=== PATIENT | female | born 1995 ===

== ENCOUNTER 2019-11-16 07:14 | Inpatient (IN) | payer BC ==
[2019-11-16] MEDS ORDERED: Methylergonovine 0.2 MG/1 ML Amp IM PRN (07:22)
[2019-11-16] MEDS ORDERED: Terbutaline 1 MG/ML SDV SUBCUT PRN (07:22)
[2019-11-16] MEDS ORDERED: Ondansetron 4 MG/2 ML SDV IVPUSH PRN (07:22)
[2019-11-16] MEDS ORDERED: Misoprostol 200 MCG Tab PO PRN (07:22)
[2019-11-16] MEDS ORDERED: Sodium Chloride 0.9% 2.5 ML Syringe FLUSH PRN (07:22)
[2019-11-16] MEDS ORDERED: Water For Irrigation,Sterile 1,000 ML Container IRR PRN (07:22)
[2019-11-16] MEDS ORDERED: Sodium Chloride 0.9% 10 ML Syringe FLUSH PRN (07:22)
[2019-11-16] MEDS ORDERED: Lidocaine 1% 50 ML MDV INJECT PRN (07:22)
[2019-11-16] MEDS ORDERED: Sodium Chloride 0.9% 10 ML SDV IV PRN (07:22)
[2019-11-16] MEDS ORDERED: Nalbuphine 10 MG/1 ML Vial IVPUSH PRN (07:22)
[2019-11-16] MEDS ORDERED: Tranexamic Acid 1,000 MG in Sodium Chloride 0.9% 100 ML IV PRN (07:22)
[2019-11-16] MEDS ORDERED: Carboprost Tromethamine 250 MCG/1 ML Amp IM PRN (07:22)
[2019-11-16] MEDS ORDERED: Oxytocin/0.9 % Sodium Chloride 30 UNIT/500 ML BAG IV SCH ×2 (07:30)
[2019-11-16] MEDS ORDERED: Lactated Ringers 1,000 ML IV SCH (07:30)
[2019-11-16] MEDS ORDERED: Misoprostol 25 MCG (1/4 of 100 MCG) Tab VAG PRN ×2 (08:00→12:00)
[2019-11-16] MEDS ORDERED: Misoprostol 25 MCG (1/4 of 100 MCG) Tab PO PRN ×2 (08:00→12:00)
--- NOTE | 2019-11-16 08:12 | PCM.LDHP ---
L&D History of Present Illness - General Date of Service: 11/16/19 Admit Problem/Dx: Patient Status Order with Admit Dx/Problem 11/16/19 07:22 Patient Status [ADT] Routine Admission Diagnosis/Problem Admission Diagnosis/Problem 11/16/19 08:08 24yo EDC 11/23/2019 39 0/7wks IOL for term. O+, RI, GBS neg Source of Information: Patient History Limitations: Reports: No Limitations - History of Present Illness Improves with: Reports: None Worsens with: Reports: None Associated Symptoms: Reports: N - Related Data Allergies/Adverse Reactions: Allergies Allergy/AdvReac Type Severity Reaction Status Date / Time sulfamethoxazole Allergy Hives Verified 11/16/19 07:30 [From Bactrim] trimethoprim [From Bactrim] Allergy Hives Verified 11/16/19 07:30 Home Medications: Home Meds Vits #93/Iron Fum/FA [ Formula Tablet] 1 each PO DAILY [History] H&P Review of Systems - Review of Systems: Review Of Systems: See Below General: Reports: No Symptoms HEENT: Reports: No Symptoms Pulmonary: Reports: No Symptoms Cardiovascular: Reports: No Symptoms Gastrointestinal: Reports: No Symptoms Genitourinary: Reports: No Symptoms Musculoskeletal: Reports: No Symptoms Skin: Reports: No Symptoms Psychiatric: Reports: No Symptoms Neurological: Reports: No Symptoms Hematologic/Lymphatic: Reports: No Symptoms Immunologic: Reports: No Symptoms L&D Exam - Exam Exam: See Below - Vital Signs Weight: 77.111 kg - OB Specific Contraction Intensity: Mild Movement: Active Heart Tones: Present Heart Tones per Min: 145 Heart Rate (FHR) Variability: Moderate (6-25 bmp) Presentation: Vertex - Berry Score Berry Score Cervix Position: Posterior Berry Score Consistency: Soft Berry Score Effacement: 51-70% Berry Score Dilation: 1-2 cm Berry Score 's Station: -3 Berry Score Total: 5 - Exam General: Alert, Oriented, Cooperative HEENT: Hearing Intact Lungs: Clear to Auscultation, Normal Respiratory Effort Cardiovascular: Regular Rate, Regular Rhythm GI/Abdominal Exam: Soft, Non-Tender Rectal Exam: Deferred Genitourinary: Normal external exam, Normal bimanual exam, Cervical dilitation. No: Cervical fluid, Vaginal bleeding Back Exam: Normal Inspection, Full Range of Motion Extremities: Normal Range of Motion, Non-Tender Skin: Warm, Dry, Intact Neurological: Cranial Nerves Intact, Strength Equal Bilateral, Normal Speech, Normal Tone, Sensation Intact Psychiatric: Alert, Normal Affect, Normal Mood - Problem List (1) Supervision of normal IUP (intrauterine ) in multigravida SNOMED Code(s): 076831588, 621442843, 284156858 ICD Code: Z34.80 - ENCOUNTER FOR SUPRVSN OF NORMAL , UNSP TRIMESTER Status: Acute Priority: High Current Visit: Yes Qualifiers: Trimester: third trimester Qualified Code(s): Z34.83 - Encounter for supervision of other normal , third trimester Problem List Initiated/Reviewed/Updated: Yes Orders Last 24hrs: Active Orders 24 hr Category Date Time Status Patient Status [ADT] Routine ADT 11/16/19 07:22 Active Bedrest Bathroom Privileges [RC] ASDIRECTED Care 11/16/19 07:22 Active Communication Order [RC] ASDIRECTED Care 11/16/19 07:22 Active Communication Order [RC] ASDIRECTED Care 11/16/19 07:22 Active Communication Order [RC] ASDIRECTED Care 11/16/19 07:22 Active Heart Tones [RC] CONTINUOUS Care 11/16/19 07:22 Active Non Stress Test [RC] PER UNIT ROUTINE Care 11/16/19 07:22 Active May Shower [RC] ASDIRECTED Care 11/16/19 07:22 Active Notify Provider [RC] PRN Care 11/16/19 07:22 Active Notify Provider [RC] PRN Care 11/16/19 07:22 Active Notify Provider [RC] PRN Care 11/16/19 07:22 Active Notify Provider [RC] STAT Care 11/16/19 07:22 Active Oxygen Therapy [RC] ASDIRECTED Care 11/16/19 07:22 Active Up ad Wilda [RC] ASDIRECTED Care 11/16/19 07:22 Active Vaginal Exam [RC] PRN Care 11/16/19 07:22 Active Vital Signs [RC] PER UNIT ROUTINE Care 11/16/19 07:22 Active Regular Diet [DIET] Diet 11/16/19 Breakfast Active CBC W/O DIFF,HEMOGRAM [HEME] Routine Lab 11/16/19 07:50 Received RPR (SYPHILIS SERO) W/ RFLX [REF] Routine Lab 11/16/19 07:50 Received TYPE AND SCREEN [BBK] Routine Lab 11/16/19 07:50 Received Carboprost Tromethamine [Hemabate DS] Med 11/16/19 07:22 Active 250 mcg IM ASDIRECTED PRN Lactated Ringers [Ringers, Lactated] 1,000 ml Med 11/16/19 07:30 Active IV ASDIRECTED Lidocaine 1% [Xylocaine 1%] Med 11/16/19 07:22 Active 50 ml INJECT ONETIME PRN Methylergonovine [Methergine] Med 11/16/19 07:22 Active 0.2 mg IM ASDIRECTED PRN Nalbuphine [Nubain] Med 11/16/19 07:22 Active 10 mg IVPUSH Q1H PRN Ondansetron [Zofran] Med 11/16/19 07:22 Active 4 mg IVPUSH Q6H PRN Oxytocin/0.9 % Sodium Chloride [Oxytocin 30 Unit/500 ML Med 11/16/19 07:30 Active -NS] 30 unit in 500 ml IV TITRATE Oxytocin/0.9 % Sodium Chloride [Oxytocin 30 Unit/500 ML Med 11/16/19 07:30 Active -NS] 30 unit in 500 ml IV TITRATE Sodium Chloride 0.9% [Normal Saline] Med 11/16/19 07:22 Active 10 ml IV ASDIRECTED PRN Sodium Chloride 0.9% [Saline Flush] Med 11/16/19 07:22 Active 10 ml FLUSH ASDIRECTED PRN Sodium Chloride 0.9% [Saline Flush] Med 11/16/19 07:22 Active 2.5 ml FLUSH ASDIRECTED PRN Terbutaline [Brethine] Med 11/16/19 07:22 Active 0.25 mg SUBCUT ASDIRECTED PRN Tranexamic Acid [Cyklokapron] 1,000 mg Med 11/16/19 07:22 Active Sodium Chloride 0.9% [Normal Saline] 100 ml IV ONETIME Water For Irrigation,Sterile [Sterile Water for Med 11/16/19 07:22 Active Irrigation] 1,000 ml IRR ASDIRECTED PRN miSOPROStoL [Cytotec] Med 11/16/19 07:22 Active 200 mcg PO ONETIME PRN miSOPROStoL [Cytotec] Med 11/16/19 08:00 Active 25 mcg PO ONETIME PRN miSOPROStoL [Cytotec] Med 11/16/19 12:00 Active 25 mcg PO Q4H PRN miSOPROStoL [Cytotec] Med 11/16/19 08:00 Active 25 mcg VAG ONETIME PRN miSOPROStoL [Cytotec] Med 11/16/19 12:00 Active 25 mcg VAG Q4H PRN Scalp Electrode [WOMSER] Per Unit Routine Oth 11/16/19 07:22 Ordered Medication Administration Instruction [OM.PC] Q3H Oth 11/16/19 07:30 Ordered Peripheral IV Insertion Adult [OM.PC] Routine Oth 11/16/19 07:22 Ordered Resuscitation Status Routine Resus Stat 11/16/19 07:22 Ordered Medication Orders Carboprost Tromethamine (Hemabate Ds) 250 mcg IM ASDIRECTED PRN PRN Reason: Post Hemorrhage Lactated Ringer's (Ringers, Lactated) 1,000 mls @ 150 mls/hr IV ASDIRECTED DAGO Oxytocin/Sodium Chloride (Oxytocin 30 Unit/500 Ml-Ns) 30 unit in 500 mls @ 999 mls/hr IV TITRATE DAGO Oxytocin/Sodium Chloride (Oxytocin 30 Unit/500 Ml-Ns) 30 unit in 500 mls @ 2 mls/hr IV TITRATE DAGO; Protocol Tranexamic Acid 1,000 mg/ (Sodium Chloride) 110 mls @ 660 mls/hr IV ONETIME PRN PRN Reason: Bleeding Lidocaine HCl (Xylocaine 1%) 50 ml INJECT ONETIME PRN PRN Reason: Laceration repair Methylergonovine Maleate (Methergine) 0.2 mg IM ASDIRECTED PRN PRN Reason: Post Hemorrhage Misoprostol (Cytotec) 200 mcg PO ONETIME PRN PRN Reason: Post Hemorrhage Misoprostol (Cytotec) 25 mcg VAG ONETIME PRN PRN Reason: Cervical Ripening Misoprostol (Cytotec) 25 mcg VAG Q4H PRN PRN Reason: Cervical Ripening Misoprostol (Cytotec) 25 mcg PO ONETIME PRN PRN Reason: Cervical Ripening Misoprostol (Cytotec) 25 mcg PO Q4H PRN PRN Reason: Cervical Ripening Nalbuphine HCl (Nubain) 10 mg IVPUSH Q1H PRN PRN Reason: Pain (severe 7-10) Ondansetron HCl (Zofran) 4 mg IVPUSH Q6H PRN PRN Reason: Nausea/Vomiting Sodium Chloride (Saline Flush) 10 ml FLUSH ASDIRECTED PRN PRN Reason: Keep Vein Open Sodium Chloride (Saline Flush) 2.5 ml FLUSH ASDIRECTED PRN PRN Reason: Keep Vein Open Sodium Chloride (Normal Saline) 10 ml IV ASDIRECTED PRN PRN Reason: IV Use Sterile Water (Sterile Water For Irrigation) 1,000 ml IRR ASDIRECTED PRN PRN Reason: delivery Terbutaline Sulfate (Brethine) 0.25 mg SUBCUT ASDIRECTED PRN PRN Reason: Tacysystole Assessment/Plan Comment:: IOL A: 24yo EDC 11/23/2019 39 0/7wks IOL for term. O+, RI, GBS neg P: Admit, cytotec to pitocin, epidural prn, anticipate . Dr Zaidi updated
--- NOTE | 2019-11-16 15:44 | PCM.PREANE ---
Preanesthetic Assessment - Anesthesia/Transfusion/Family Hx Anesthesia History: Prior Anesthesia Without Reaction Family History of Anesthesia Reaction: No Transfusion History: No Prior Transfusion(s) - Review of Systems General: No Symptoms Pulmonary: No Symptoms Cardiovascular: No Symptoms Gastrointestinal: No Symptoms Neurological: No Symptoms Other: Reports: None - Physical Assessment NPO Status Date: 11/16/19 NPO Status Time: 15:00 (water at 1500, chicken strips at 1000) Vital Signs: Last Vital Signs Temp Pulse Resp BP Pulse Ox 98 11/16/19 07:22 Height: 5 ft 5 in Weight: 77.111 kg ASA Class: 2 Mental Status: Alert & Oriented x3 Airway Class: Mallampati = 2 Dentition: Reports: Normal Dentition Thyro-Mental Finger Breadths: 3 ROM/Head Extension: Full Lungs: Clear to Auscultation, Normal Respiratory Effort Cardiovascular: Regular Rate, Regular Rhythm Other: for elective induction at 39 weeks. Had 2 previous epidurals - Lab Values: Laboratory Last Values WBC 7.86 K/uL (4.0-11.0) 11/16/19 07:50 RBC 4.10 M/uL (4.30-5.90) L 11/16/19 07:50 Hgb 12.9 g/dL (12.0-16.0) 11/16/19 07:50 Hct 39.0 % (36.0-46.0) 11/16/19 07:50 MCV 95.1 fL (80.0-98.0) 11/16/19 07:50 MCH 31.5 pg (27.0-32.0) 11/16/19 07:50 MCHC 33.1 g/dL (31.0-37.0) 11/16/19 07:50 RDW Std Deviation 46.4 fl (28.0-62.0) 11/16/19 07:50 RDW Coeff of Camila 13 % (11.0-15.0) 11/16/19 07:50 Plt Count 225 K/uL (150-400) 11/16/19 07:50 MPV 10.20 fL (7.40-12.00) 11/16/19 07:50 Nucleated RBC % 0.0 /100WBC 11/16/19 07:50 Nucleated RBCs # 0 K/uL 11/16/19 07:50 Blood Type O POSITIVE 11/16/19 07:50 Antibody Screen NEGATIVE 11/16/19 07:50 - Allergies Allergies/Adverse Reactions: Allergies Allergy/AdvReac Type Severity Reaction Status Date / Time sulfamethoxazole Allergy Hives Verified 11/16/19 07:30 [From Bactrim] trimethoprim [From Bactrim] Allergy Hives Verified 11/16/19 07:30 - Acknowledgements Anesthesia Type Planned: Epidural Pt an Appropriate Candidate for the Planned Anesthesia: Yes Alternatives and Risks of Anesthesia Discussed w Pt/Guardian: Yes Pt/Guardian Understands and Agrees with Anesthesia Plan: Yes PreAnesthesia Questionnaire - HOME MEDS Home Medications: Home Meds Vits #93/Iron Fum/FA [ Formula Tablet] 1 each PO DAILY [History] - CURRENT (IN HOUSE) MEDS Current Meds: Current Medications Carboprost Tromethamine (Hemabate Ds) 250 mcg IM ASDIRECTED PRN PRN Reason: Post Hemorrhage Lactated Ringer's (Ringers, Lactated) 1,000 mls @ 150 mls/hr IV ASDIRECTED DAGO Oxytocin/Sodium Chloride (Oxytocin 30 Unit/500 Ml-Ns) 30 unit in 500 mls @ 999 mls/hr IV TITRATE DAGO Oxytocin/Sodium Chloride (Oxytocin 30 Unit/500 Ml-Ns) 30 unit in 500 mls @ 2 mls/hr IV TITRATE DAGO; Protocol Tranexamic Acid 1,000 mg/ (Sodium Chloride) 110 mls @ 660 mls/hr IV ONETIME PRN PRN Reason: Bleeding Lidocaine HCl (Xylocaine 1%) 50 ml INJECT ONETIME PRN PRN Reason: Laceration repair Methylergonovine Maleate (Methergine) 0.2 mg IM ASDIRECTED PRN PRN Reason: Post Hemorrhage Misoprostol (Cytotec) 200 mcg PO ONETIME PRN PRN Reason: Post Hemorrhage Misoprostol (Cytotec) 25 mcg VAG ONETIME PRN PRN Reason: Cervical Ripening Last Admin: 11/16/19 08:10 Dose: 25 mcg Misoprostol (Cytotec) 25 mcg VAG Q4H PRN PRN Reason: Cervical Ripening Misoprostol (Cytotec) 25 mcg PO ONETIME PRN PRN Reason: Cervical Ripening Last Admin: 11/16/19 08:10 Dose: 25 mcg Misoprostol (Cytotec) 25 mcg PO Q4H PRN PRN Reason: Cervical Ripening Nalbuphine HCl (Nubain) 10 mg IVPUSH Q1H PRN PRN Reason: Pain (severe 7-10) Ondansetron HCl (Zofran) 4 mg IVPUSH Q6H PRN PRN Reason: Nausea/Vomiting Sodium Chloride (Saline Flush) 10 ml FLUSH ASDIRECTED PRN PRN Reason: Keep Vein Open Sodium Chloride (Saline Flush) 2.5 ml FLUSH ASDIRECTED PRN PRN Reason: Keep Vein Open Sodium Chloride (Normal Saline) 10 ml IV ASDIRECTED PRN PRN Reason: IV Use Last Admin: 11/16/19 07:48 Dose: 10 ml Sterile Water (Sterile Water For Irrigation) 1,000 ml IRR ASDIRECTED PRN PRN Reason: delivery Terbutaline Sulfate (Brethine) 0.25 mg SUBCUT ASDIRECTED PRN PRN Reason: Tacysystole Discontinued Medications Fentanyl/Bupivacaine HCl ([id number]-[id number]-Vf 2 Mcg/Ml-0.125%) Confirm Administered Dose 100 mls @ as directed .ROUTE .[facility] Stop: 11/16/19 15:10
--- NOTE | 2019-11-16 18:00 | PCM.DEL ---
L & D Note - General Info Date of Service: 11/16/19 Mother's Due Date: 11/23/19 - Delivery Note Labor: Spontaneous Cervical Ripening Method: Misoprostil Delivery Outcome: Livebirth Delivery Method: Spontaneous Vaginal Delivery-Single Infant Delivery Mode: Spontaneous Presentation: Vertex Nuchal Cord: None Anesthesia Type: Epidural Amniotic Fluid Description: Clear Episiotomy Type: None Laceration: None Placenta: Intact, Spontaneous Cord: 3 Vessels Resuscitation Needed: Yes Score 1 min: 8 Score 5 min: 9 Second Stage Interventions: Reports: Pushing, Pulls Own Legs Back Delivery Comments (Free Text/Narrative):: of viable female, Head delivered with good pushing, Shoulders and body followed easily. with spont cry placed on mothers abdomen with RN at bs. Delayed cord clamping. Pitocin to IFV. Cord clamped and cut by FOB. Cord blood collected. Placenta delivered with manual assistance. Bimanual normal. Inspection noted intact perineum. EBL 100, APGARS 8/9, Wt: pending bonding. Mother and baby bonding well in recovery both stable. Induction Criteria - Berry Score Berry Score Dilation: 1-2 cm Berry Score Effacement: 40-50% Berry Score Infant's Station: -3 Berry Score Consistency: Soft Berry Score Cervix Position: Posterior Berry Score Total: 4 Berry Score Presenting Part: Reports: Cephalic - Induction Gestational Age >/= 39 wks: Yes Estimated Pelvis: Reports: Adequate Reassuring Monitoring Strip: Yes Absence of Tachy Systole: Yes - General Info Date of Service: 11/16/19 Admission Dx/Problem (Free Text): Patient Status Order with Admit Dx/Problem 11/16/19 07:22 Patient Status [ADT] Routine Admission Diagnosis/Problem Admission Diagnosis/Problem 11/16/19 08:08 24yo EDC 11/23/2019 39 0/7wks IOL for term. O+, RI, GBS neg Functional Status: Reports: Pain Controlled - Review of Systems General: Reports: No Symptoms HEENT: Reports: No Symptoms Pulmonary: Reports: No Symptoms Cardiovascular: Reports: No Symptoms Gastrointestinal: Reports: No Symptoms Genitourinary: Reports: No Symptoms Musculoskeletal: Reports: No Symptoms Skin: Reports: No Symptoms Neurological: Reports: No Symptoms Psychiatric: Reports: No Symptoms - Patient Data Vitals - Most Recent: Last Vital Signs Temp Pulse Resp BP Pulse Ox 98 11/16/19 07:22 Weight - Most Recent: 77.111 kg Lab Results Last 24 Hours: Laboratory Results - last 24 hr 11/16/19 11/16/19 Range/Units 07:50 07:50 WBC 7.86 (4.0-11.0) K/uL RBC 4.10 L (4.30-5.90) M/uL Hgb 12.9 (12.0-16.0) g/dL Hct 39.0 (36.0-46.0) % MCV 95.1 (80.0-98.0) fL MCH 31.5 (27.0-32.0) pg MCHC 33.1 (31.0-37.0) g/dL RDW Std Deviation 46.4 (28.0-62.0) fl RDW Coeff of Camila 13 (11.0-15.0) % Plt Count 225 (150-400) K/uL MPV 10.20 (7.40-12.00) fL Nucleated RBC % 0.0 /100WBC Nucleated RBCs # 0 K/uL Blood Type O POSITIVE Antibody Screen NEGATIVE Med Orders - Current: Current Medications Carboprost Tromethamine (Hemabate Ds) 250 mcg IM ASDIRECTED PRN PRN Reason: Post Hemorrhage Lactated Ringer's (Ringers, Lactated) 1,000 mls @ 150 mls/hr IV ASDIRECTED DAGO Oxytocin/Sodium Chloride (Oxytocin 30 Unit/500 Ml-Ns) 30 unit in 500 mls @ 999 mls/hr IV TITRATE DAGO Oxytocin/Sodium Chloride (Oxytocin 30 Unit/500 Ml-Ns) 30 unit in 500 mls @ 2 mls/hr IV TITRATE DAGO; Protocol Tranexamic Acid 1,000 mg/ (Sodium Chloride) 110 mls @ 660 mls/hr IV ONETIME PRN PRN Reason: Bleeding Lidocaine HCl (Xylocaine 1%) 50 ml INJECT ONETIME PRN PRN Reason: Laceration repair Methylergonovine Maleate (Methergine) 0.2 mg IM ASDIRECTED PRN PRN Reason: Post Hemorrhage Misoprostol (Cytotec) 200 mcg PO ONETIME PRN PRN Reason: Post Hemorrhage Misoprostol (Cytotec) 25 mcg VAG ONETIME PRN PRN Reason: Cervical Ripening Last Admin: 11/16/19 08:10 Dose: 25 mcg Misoprostol (Cytotec) 25 mcg VAG Q4H PRN PRN Reason: Cervical Ripening Misoprostol (Cytotec) 25 mcg PO ONETIME PRN PRN Reason: Cervical Ripening Last Admin: 11/16/19 08:10 Dose: 25 mcg Misoprostol (Cytotec) 25 mcg PO Q4H PRN PRN Reason: Cervical Ripening Nalbuphine HCl (Nubain) 10 mg IVPUSH Q1H PRN PRN Reason: Pain (severe 7-10) Ondansetron HCl (Zofran) 4 mg IVPUSH Q6H PRN PRN Reason: Nausea/Vomiting Sodium Chloride (Saline Flush) 10 ml FLUSH ASDIRECTED PRN PRN Reason: Keep Vein Open Sodium Chloride (Saline Flush) 2.5 ml FLUSH ASDIRECTED PRN PRN Reason: Keep Vein Open Sodium Chloride (Normal Saline) 10 ml IV ASDIRECTED PRN PRN Reason: IV Use Last Admin: 11/16/19 07:48 Dose: 10 ml Sterile Water (Sterile Water For Irrigation) 1,000 ml IRR ASDIRECTED PRN PRN Reason: delivery Terbutaline Sulfate (Brethine) 0.25 mg SUBCUT ASDIRECTED PRN PRN Reason: Tacysystole Discontinued Medications Fentanyl/Bupivacaine HCl (Acnmwmmb-Cwfax-[id number] 2 Mcg/Ml-0.125%) Confirm Administered Dose 100 mls @ as directed .ROUTE .[facility] ONE Stop: 11/16/19 15:10 - Exam General: Alert, Oriented, Cooperative, No Acute Distress Lungs: Normal Respiratory Effort GI/Abdominal Exam: Soft, Non-Tender (Female) Exam: Normal External Exam, Normal Bimanual Exam, Vaginal Bleeding. No: Vaginal Lesions, Vaginal Tears Back Exam: Normal Inspection Extremities: Normal Inspection, No Pedal Edema, Normal Capillary Refill Skin: Warm, Dry, Intact Wound/Incisions: Healing Well Neurological: No New Focal Deficit, Normal Speech, Normal Tone Psy/Mental Status: Alert, Normal Affect, Normal Mood - Problem List & Annotations (1) Supervision of normal IUP (intrauterine ) in multigravida SNOMED Code(s): 195045367, 315575041, 111889300 Code(s): Z34.80 - ENCOUNTER FOR SUPRVSN OF NORMAL , UNSP TRIMESTER Status: Acute Priority: High Current Visit: Yes Qualifiers: Trimester: third trimester Qualified Code(s): Z34.83 - Encounter for supervision of other normal , third trimester (2) (normal spontaneous vaginal delivery) SNOMED Code(s): 58739819, 203556983 Code(s): O80 - ENCOUNTER FOR FULL-TERM UNCOMPLICATED DELIVERY Status: Acute Priority: High Current Visit: Yes - Problem List Review Problem List Initiated/Reviewed/Updated: Yes - Plan Plan:: IOL A: 24yo EDC 11/23/2019 39 0/7wks IOL for term. O+, RI, GBS neg P: Admit, cytotec to pitocin, epidural prn, anticipate . Dr Zaidi updated Delivery A: of viable female, APGARS 8/9, Wt: pending, Intact EBL 100cc. Stable P: PP plan of care
[2019-11-16] MEDS ORDERED: Ibuprofen 400 MG Tab PO PRN (18:14)
[2019-11-16] MEDS ORDERED: Bisacodyl 10 MG Supp RECTAL PRN (18:14)
[2019-11-16] MEDS ORDERED: Acetaminophen 500 MG Tab PO PRN ×2 (18:14)
[2019-11-16] MEDS ORDERED: Lanolin 100% Cream 7 GM Tube TOP PRN (18:14)
[2019-11-16] MEDS ORDERED: oxyCODONE 5 MG Tab PO PRN (18:14)
[2019-11-16] MEDS ORDERED: Docusate Sodium 100 MG Cap PO PRN (18:14)
[2019-11-16] MEDS ORDERED: Witch Hazel Medicated Pads 40/Jar TOP PRN (18:14)
[2019-11-16] MEDS ORDERED: Benzocaine/Menthol 20%-0.5% Spray 78 GM Cannister TOP PRN (18:14)
[2019-11-16] MEDS: Ibuprofen 800 MG Tab PO PRN (22:24)
--- NOTE | 2019-11-17 07:00 | PCM48HPAN ---
Post Anesthesia Note - EVALUATION WITHIN 48HRS OF ANESTHETIC Vital Signs in Normal Range: Yes Patient Participated in Evaluation: Yes Respiratory Function Stable: Yes Airway Patent: Yes Cardiovascular Function Stable: Yes Hydration Status Stable: Yes Pain Control Satisfactory: Yes Nausea and Vomiting Control Satisfactory: Yes Mental Status Recovered: Yes Vital Signs: Last Vital Signs Temp 36.3 C 11/17/19 04:47 Pulse 74 11/17/19 04:47 Resp 18 11/17/19 04:47 BP 105/58 L 11/17/19 04:47 Pulse Ox 98 11/17/19 04:47
[2019-11-17] MEDS: Ibuprofen 800 MG Tab PO PRN (07:49)
--- NOTE | 2019-11-17 08:55 | PCM.DCSUM1 ---
Discharge Summary - Hospital Course Free Text/Narrative:: Discharge home with . Follow up in 6 weeks for Diagnosis: Stroke: No Modified [place] Scale: No Symptoms at All Modified Mitch Scale Score: 0 - Discharge Data Discharge Date: 11/17/19 Discharge Disposition: Home, Self-Care 01 Condition: Good - Referral to Home Health Primary Care Physician: PCP None - Discharge Diagnosis/Problem(s) (1) Supervision of normal IUP (intrauterine ) in multigravida SNOMED Code(s): 390622436, [id number], 568998392 ICD Code: Z34.80 - ENCOUNTER FOR SUPRVSN OF NORMAL , UNSP TRIMESTER Status: Acute Priority: High Current Visit: Yes Qualifiers: Trimester: third trimester Qualified Code(s): Z34.83 - Encounter for supervision of other normal , third trimester (2) (normal spontaneous vaginal delivery) SNOMED Code(s): 11124123, 287762779 ICD Code: O80 - ENCOUNTER FOR FULL-TERM UNCOMPLICATED DELIVERY Status: Acute Priority: High Current Visit: Yes - Patient Instructions Diet: Usual Diet as Tolerated Activity: As Tolerated, No Strenuous Activities, Rest and Relax Today Driving: May Drive Today Showering/Bathing: May Shower Notify Provider of: Fever, Increased Pain, Swelling and Redness, Nausea and/or Vomiting Other/Special Instructions: Discharge home with infant. Follow up in 6 weeks for - Discharge Plan *PRESCRIPTION DRUG MONITORING PROGRAM REVIEWED*: Not Applicable *COPY OF PRESCRIPTION DRUG MONITORING REPORT IN PATIENT GILBERT: Not Applicable Home Medications: Home Meds Vits #93/Iron Fum/FA [ Formula Tablet] 1 each PO DAILY [History] Oxygen Therapy Mode: Room Air Referrals: [facility] [Outside] Meliza Mckeon, NEVINM, MENTAL HEALTH SOC[employer] WORKER [Mid-] - 12/28/19 2:00 pm - Discharge Summary/Plan Comment DC Time >30 min.: Yes - General Info Date of Service: 11/17/19 Admission Dx/Problem (Free Text: Patient Status Order with Admit Dx/Problem 11/16/19 07:22 Patient Status [ADT] Routine Admission Diagnosis/Problem Admission Diagnosis/Problem 11/16/19 08:08 24yo EDC 11/23/2019 39 0/7wks IOL for term. O+, RI, GBS neg Functional Status: Reports: Pain Controlled, Tolerating Diet, Ambulating, Urinating - Review of Systems General: Reports: No Symptoms HEENT: Reports: No Symptoms Pulmonary: Reports: No Symptoms Cardiovascular: Reports: No Symptoms Gastrointestinal: Reports: No Symptoms Genitourinary: Reports: No Symptoms Musculoskeletal: Reports: No Symptoms Skin: Reports: No Symptoms Neurological: Reports: No Symptoms Psychiatric: Reports: No Symptoms - Patient Data Vitals - Most Recent: Last Vital Signs Temp 36.3 C 11/17/19 04:47 Pulse 74 11/17/19 04:47 Resp 18 11/17/19 04:47 BP 105/58 L 11/17/19 04:47 Pulse Ox 98 11/17/19 04:47 Weight - Most Recent: 77.111 kg Med Orders - Current: Current Medications Acetaminophen (Tylenol Extra Strength) 500 mg PO Q4H PRN PRN Reason: Pain Acetaminophen (Tylenol Extra Strength) 1,000 mg PO Q4H PRN PRN Reason: Pain Benzocaine/Menthol (Dermoplast Pain Relief 20%-0.5% [place]) 78 gm TOP ASDIRECTED PRN PRN Reason: Perineal Comfort Measure Bisacodyl (Dulcolax) 10 mg RECTAL ONETIME PRN PRN Reason: Constipation Docusate Sodium (Colace) 100 mg PO BID PRN PRN Reason: Constipation Emollient Ointment (Lansinoh Hpa) 0 gm TOP ASDIRECTED PRN PRN Reason: Sore Nipples Last Admin: 11/16/19 22:25 Dose: 1 tube Ibuprofen (Motrin) 400 mg PO Q4H PRN PRN Reason: Pain Ibuprofen (Motrin) 800 mg PO Q6H PRN PRN Reason: Pain Last Admin: 11/17/19 07:49 Dose: 800 mg Oxycodone HCl (Oxycodone) 5 mg PO Q2H PRN PRN Reason: Pain Witch Teresa (Tucks) 1 pad TOP ASDIRECTED PRN PRN Reason: comfort care Discontinued Medications Carboprost Tromethamine (Hemabate Ds) 250 mcg IM ASDIRECTED PRN PRN Reason: Post Hemorrhage Lactated Ringer's (Ringers, Lactated) 1,000 mls @ 150 mls/hr IV ASDIRECTED DAGO Oxytocin/Sodium Chloride (Oxytocin 30 Unit/500 Ml-Ns) 30 unit in 500 mls @ 999 mls/hr IV TITRATE DAGO Last Infusion: 11/16/19 17:57 Dose: 500 mls/hr Oxytocin/Sodium Chloride (Oxytocin 30 Unit/500 Ml-Ns) 30 unit in 500 mls @ 2 mls/hr IV TITRATE DAGO; Protocol Tranexamic Acid 1,000 mg/ (Sodium Chloride) 110 mls @ 660 mls/hr IV ONETIME PRN PRN Reason: Bleeding Fentanyl/Bupivacaine HCl (Wsooztuo-Hsgxc-Zh 2 Mcg/Ml-0.125%) Confirm Administered Dose 100 mls @ as directed .ROUTE .[facility] Stop: 11/16/19 15:10 Lidocaine HCl (Xylocaine 1%) 50 ml INJECT ONETIME PRN PRN Reason: Laceration repair Methylergonovine Maleate (Methergine) 0.2 mg IM ASDIRECTED PRN PRN Reason: Post Hemorrhage Misoprostol (Cytotec) 200 mcg PO ONETIME PRN PRN Reason: Post Hemorrhage Misoprostol (Cytotec) 25 mcg VAG ONETIME PRN PRN Reason: Cervical Ripening Last Admin: 11/16/19 08:10 Dose: 25 mcg Misoprostol (Cytotec) 25 mcg VAG Q4H PRN PRN Reason: Cervical Ripening Misoprostol (Cytotec) 25 mcg PO ONETIME PRN PRN Reason: Cervical Ripening Last Admin: 11/16/19 08:10 Dose: 25 mcg Misoprostol (Cytotec) 25 mcg PO Q4H PRN PRN Reason: Cervical Ripening Nalbuphine HCl (Nubain) 10 mg IVPUSH Q1H PRN PRN Reason: Pain (severe 7-10) Ondansetron HCl (Zofran) 4 mg IVPUSH Q6H PRN PRN Reason: Nausea/Vomiting Sodium Chloride (Saline Flush) 10 ml FLUSH ASDIRECTED PRN PRN Reason: Keep Vein Open Sodium Chloride (Saline Flush) 2.5 ml FLUSH ASDIRECTED PRN PRN Reason: Keep Vein Open Sodium Chloride (Normal Saline) 10 ml IV ASDIRECTED PRN PRN Reason: IV Use Last Admin: 11/16/19 07:48 Dose: 10 ml Sterile Water (Sterile Water For Irrigation) 1,000 ml IRR ASDIRECTED PRN PRN Reason: delivery Terbutaline Sulfate (Brethine) 0.25 mg SUBCUT ASDIRECTED PRN PRN Reason: Tacysystole - Exam General: Reports: Alert, Oriented, Cooperative, No Acute Distress Lungs: Reports: Clear to Auscultation, Normal Respiratory Effort Cardiovascular: Reports: Regular Rate, Regular Rhythm GI/Abdominal Exam: Soft, Non-Tender (Female) Exam: Deferred, Vaginal Bleeding Rectal (Female) Exam: Deferred Back Exam: Reports: Normal Inspection Extremities: Normal Inspection, Normal Range of Motion, Non-Tender, No Pedal Edema Skin: Reports: Warm, Dry, Intact Neurological: Reports: No New Focal Deficit, Normal Speech, Normal Tone, Strength Equal Bilateral, Sensation Intact Psy/Mental Status: Reports: Alert, Normal Affect, Normal Mood
== END 2019-11-17 17:30 | disposition home or self-care (01) | DRG 560 ==
LOC: MW.OBCHECK 07:14 → MW.OB 07:15 → OBSVTOIN 18:15 → MW.OB 18:15
PROVIDERS: ADMIT Obstetrics & Gynecology; ATTEND Obstetrics & Gynecology
PROC: 10E0XZZ Delivery of Products of Conception, External Approach (ICD-10-PCS; principal; 2019-11-16)
PROC: 3E0P7VZ Introduction of Hormone into Female Reproductive, Via Natural or Artificial Opening (ICD-10-PCS; 2019-11-16)
PROC: 3E0R3BZ Introduction of Anesthetic Agent into Spinal Canal, Percutaneous Approach (ICD-10-PCS; 2019-11-16)
PROC: 10907ZC Drainage of Amniotic Fluid, Therapeutic from Products of Conception, Via Natural or Artificial Opening (ICD-10-PCS; 2019-11-16)
DX: O80 Encounter for full-term uncomplicated delivery (principal); Z88.0 Allergy status to penicillin; Z3A.39 39 weeks gestation of pregnancy; Z79.899 Other long term (current) drug therapy; Z37.0 Single live birth
CPT/HCPCS: 36415; 51702; 59025; 59409; 85027; 86592; 86593; 86850; 86900; 86901; A9270-GY; J2590; J7050